=== PATIENT | female | born 1960 | race African-American/Black ===

== ENCOUNTER 2023-11-08 23:36 | Inpatient (IN) | payer OTHER ==
[~2023-11-08] VITALS: Ht 165.1 cm; Wt 80.7 kg
[2023-11-08] MEDS ORDERED: CALCIUM GLUCONATE 100MG/ML 10ML VIAL IV ONE (23:45)
[2023-11-08 23:59] LABS: BASOPHILS % 1.1 % (0.0-2.0); EOSINOPHILS % 6.8 % (0.0-5.0); HEMATOCRIT. 32.4 % (36.0-48.0); HEMOGLOBIN. 10.6 g/dL (12.0-16.0); LYMPHOCYTES % 7.4 % (20.0-50.0); MEAN CORPUSCULAR HEMOGLOBIN 30.7 pg (28.0-32.0); MEAN CORPUSCULAR HGB CONC 32.6 g/dL (31.0-37.0); MEAN CORPUSCULAR VOLUME 94.1 fL (81.0-99.0); MEAN PLATELET VOLUME 8.8 fl (7.4-10.4); MONOCYTES % 10.3 % (2.0-8.0); NEUTROPHILS % 74.4 % (40.0-76.0); PLATELET 189 x1000/uL (130-400); RED BLOOD CELL COUNT 3.44 mill/uL (4.2-5.4); RED CELL DISTRIBUTION WIDTH 14.8 % (11.6-14.6); WHITE BLOOD COUNT 8.4 x1000/uL (4.5-11.0)
[2023-11-09] VITALS (19 sets, daily range): BP systolic 112–175; BP diastolic 49–68; PULSE 42–67; RESP 14–26; TEMP 97.1–98; O2SAT 100
[2023-11-09] MEDS: CALCIUM GLUCONATE 1GM PREMIX 50 ML IV NR ×2 (00:01→01:41)
[2023-11-09 00:12] LABS: CHLORIDE 105 mEq/L (98-107); POTASSIUM 3.8 mEq/L (3.5-5.1); SODIUM 138 mEq/L (136-145)
[2023-11-09 00:13] LABS: CALCIUM 8.4 mg/dL (8.7-10.4); CARBON DIOXIDE 24 mEq/L (21-32)
[2023-11-09 00:18] LABS: GLUCOSE 197 mg/dL (70-105); UREA NITROGEN BLOOD 36 mg/dL (9-23)
[2023-11-09 00:19] LABS: TROPONIN I HIGH SENSITIVITY 17 ng/L (3.0-34)
[2023-11-09 00:27] LABS: CREATININE 5.5 mg/dL (0.6-1.0)
[2023-11-09] MEDS: HYDRALAZINE 20MG/ML VIAL IV NR ×2 (04:18→05:54)
[2023-11-09] MEDS ORDERED: GUAIFENESIN 200MG/10ML SUGAR FREE UDC PO PRN (05:15)
[2023-11-09] MEDS ORDERED: DOCUSATE SODIUM 100MG CAPSULE PO PRN (05:15)
[2023-11-09] MEDS ORDERED: DEXTROSE 50% WATER 50ML SYRINGE IV PRN (05:15)
[2023-11-09] MEDS ORDERED: IPRATROPIUM/ALBUTEROL 0.5-3(2.5)MG/3ML NEB HHN PRN (05:15)
[2023-11-09] MEDS ORDERED: ONDANSETRON HCL 4MG/2ML INJ IV PRN (05:15)
[2023-11-09] MEDS: BLOOD SUGAR DIAGNOSTIC STRIP TEST SCH (08:05)
[2023-11-09] MEDS: INSULIN LISPRO 100 UNITS/ML SUBCUT SCH (08:20)
[2023-11-09] MEDS: ASPIRIN 81MG EC TABLET PO SCH (09:00)
[2023-11-09] MEDS: AMLODIPINE 10MG TABLET PO SCH (09:00)
[2023-11-09] MEDS: ENOXAPARIN 30MG/0.3ML SYR SUBCUT SCH (09:00)
[2023-11-09 09:20] LABS: BASOPHILS % 0.9 % (0.0-2.0); EOSINOPHILS % 7.4 % (0.0-5.0); HEMATOCRIT. 32.7 % (36.0-48.0); HEMOGLOBIN. 10.7 g/dL (12.0-16.0); LYMPHOCYTES % 9.6 % (20.0-50.0); MEAN CORPUSCULAR HEMOGLOBIN 30.3 pg (28.0-32.0); MEAN CORPUSCULAR HGB CONC 32.5 g/dL (31.0-37.0); MEAN CORPUSCULAR VOLUME 93.2 fL (81.0-99.0); MEAN PLATELET VOLUME 8.5 fl (7.4-10.4); MONOCYTES % 14.6 % (2.0-8.0); NEUTROPHILS % 67.5 % (40.0-76.0); PLATELET 182 x1000/uL (130-400); RED BLOOD CELL COUNT 3.51 mill/uL (4.2-5.4); RED CELL DISTRIBUTION WIDTH 15.1 % (11.6-14.6); WHITE BLOOD COUNT 7.3 x1000/uL (4.5-11.0)
[2023-11-09 10:25] LABS: CHLORIDE 102 mEq/L (98-107); POTASSIUM 4.3 mEq/L (3.5-5.1); SODIUM 138 mEq/L (136-145)
[2023-11-09 10:26] LABS: CARBON DIOXIDE 26 mEq/L (21-32)
[2023-11-09 10:31] LABS: GLUCOSE 114 mg/dL (70-105); IRON 40 ug/dL (50-170)
[2023-11-09 10:32] LABS: LDL CHOLESTEROL 33 mg/dL (5-100); T4 FREE 1.11 ng/dL (0.89-1.76); TOTAL IRON BINDING CAPACITY 222 ug/dl (250-425); TRIGLYCERIDE 63 mg/dL (0-150); UREA NITROGEN BLOOD 33 mg/dL (9-23)
[2023-11-09 10:33] LABS: ALANINE AMINOTRANSFERASE < 7 IU/L (10-49); ALBUMIN 3.5 g/dL (3.2-4.8); ASPARTATE AMINOTRANSFERASE 18 IU/L (<34); BILIRUBIN TOTAL < 0.2 mg/dL (0.1-1.0); CHOLESTEROL 74 mg/dL (<200); HDL CHOLESTEROL 26 mg/dL (>65); THYROID STIMULATING HORMONE 1.43 uIU/mL (0.55-4.78)
[2023-11-09 10:34] LABS: PHOSPHORUS 3.1 mg/dL (2.5-4.9)
[2023-11-09 11:20] LABS: CREATININE 6.2 mg/dL (0.6-1.0)
[2023-11-09 11:34] LABS: CALCIUM 9.5 mg/dL (8.7-10.4)
[2023-11-09 11:47] LABS: FERRITIN 870 ng/mL (10-291); FOLIC ACID (FOLATE) SERUM 6.15 ng/mL (>5.38)
[2023-11-09 12:59] LABS: VITAMIN B12 SERUM 303 pg/mL (211-911)
[2023-11-09] MEDS: IPRATROPIUM/ALBUTEROL 0.5-3(2.5)MG/3ML NEB HHN SCH (21:10)
[2023-11-09] MEDS: ATORVASTATIN CALCIUM 40MG TABLET PO SCH (22:31)
[2023-11-09] MEDS: MELATONIN 3MG TABLET PO SCH (22:32)
[2023-11-09] MEDS: FAMOTIDINE 20MG TABLET PO SCH (22:32)
[2023-11-10] VITALS (16 sets, daily range): BP systolic 116–178; BP diastolic 44–80; PULSE 46–71; RESP 16–29; TEMP 96.2–98; O2SAT 100
[2023-11-10] MEDS: HYDRALAZINE 20MG/ML VIAL IV PRN (05:20)
[2023-11-10 06:25] LABS: HEMATOCRIT. 29.9 % (36.0-48.0); HEMOGLOBIN. 9.8 g/dL (12.0-16.0); MEAN CORPUSCULAR HEMOGLOBIN 30.3 pg (28.0-32.0); MEAN CORPUSCULAR HGB CONC 32.9 g/dL (31.0-37.0); MEAN CORPUSCULAR VOLUME 92.1 fL (81.0-99.0); MEAN PLATELET VOLUME 8.7 fl (7.4-10.4); PLATELET 185 x1000/uL (130-400); RED BLOOD CELL COUNT 3.25 mill/uL (4.2-5.4); RED CELL DISTRIBUTION WIDTH 14.7 % (11.6-14.6); WHITE BLOOD COUNT 7.5 x1000/uL (4.5-11.0)
[2023-11-10 06:33] LABS: CHLORIDE 103 mEq/L (98-107); POTASSIUM 4.1 mEq/L (3.5-5.1); SODIUM 139 mEq/L (136-145)
[2023-11-10 06:34] LABS: DIFFERENTIAL COMMENT 1
[2023-11-10 06:35] LABS: CALCIUM 9.2 mg/dL (8.7-10.4); CARBON DIOXIDE 26 mEq/L (21-32)
[2023-11-10 06:40] LABS: GLUCOSE 108 mg/dL (70-105); UREA NITROGEN BLOOD 34 mg/dL (9-23)
[2023-11-10 06:42] LABS: ALANINE AMINOTRANSFERASE < 7 IU/L (10-49); ALBUMIN 3.6 g/dL (3.2-4.8); ASPARTATE AMINOTRANSFERASE 14 IU/L (<34); BILIRUBIN TOTAL < 0.2 mg/dL (0.1-1.0); PHOSPHORUS 3.5 mg/dL (2.5-4.9); PROTEIN TOTAL 6.2 g/dL (6.0-8.3)
[2023-11-10 06:52] LABS: CREATININE 5.7 mg/dL (0.6-1.0)
[2023-11-10] MEDS: AMLODIPINE 5MG TABLET PO SCH (08:24)
[2023-11-10] MEDS: FOLIC ACID/VITAMIN B COMP W-C TABLET PO SCH (08:25)
[2023-11-10] MEDS: NITROGLYCERIN OINT 1GM/INCH UDPKT TD STA (11:29)
[2023-11-10 11:33] LABS: PLATELET ESTIMATE NORMAL
[2023-11-10] MEDS: ACETAMINOPHEN 325MG TABLET PO PRN (20:27)
[2023-11-10] MEDS: HEPARIN 5000 UNITS/ML VIAL SUBCUT SCH (21:00)
[2023-11-10] MEDS: EPOETIN ALFA 4000UNITS/ML VIAL SUBCUT SCH (21:37)
[2023-11-11] VITALS (12 sets, daily range): BP systolic 133–178; BP diastolic 48–125; PULSE 44–90; RESP 12–26; TEMP 96.4–98.7; O2SAT 99–100
[2023-11-11 06:42] LABS: BASOPHILS % 1.1 % (0.0-2.0); EOSINOPHILS % 7.1 % (0.0-5.0); HEMATOCRIT. 32.6 % (36.0-48.0); HEMOGLOBIN. 10.7 g/dL (12.0-16.0); MEAN CORPUSCULAR HEMOGLOBIN 30.5 pg (28.0-32.0); MEAN CORPUSCULAR VOLUME 92.4 fL (81.0-99.0); MONOCYTES % 13.5 % (2.0-8.0); NEUTROPHILS % 67.3 % (40.0-76.0); PLATELET 188 x1000/uL (130-400); RED BLOOD CELL COUNT 3.53 mill/uL (4.2-5.4); RED CELL DISTRIBUTION WIDTH 14.6 % (11.6-14.6); WHITE BLOOD COUNT 6.3 x1000/uL (4.5-11.0)
[2023-11-11 06:52] LABS: POTASSIUM 4.2 mEq/L (3.5-5.1)
[2023-11-11 06:53] LABS: CALCIUM 9.5 mg/dL (8.7-10.4)
[2023-11-11 07:00] LABS: PHOSPHORUS 4.4 mg/dL (2.5-4.9)
[2023-11-11 07:03] LABS: CREATININE 7.3 mg/dL (0.6-1.0)
[2023-11-11] MEDS: NITROGLYCERIN OINT 1GM/INCH UDPKT TD SCH (10:23)
[2023-11-11] MEDS ORDERED: GENTAMICIN SULF 40MG/ML 2ML VIAL ONE (13:25)
[2023-11-11] MEDS ORDERED: CEFAZOLIN SODIUM 1000MG/VIAL ONE (13:25)
[2023-11-11] MEDS ORDERED: GENTAMICIN/NS IRRIGATION 500 ML IR NR (13:45)
[2023-11-11] MEDS ORDERED: FENTANYL CITRATE/PF 50MCG/ML 2ML VIAL ONE (14:10)
[2023-11-11] MEDS ORDERED: MIDAZOLAM HCL 2 MG/2 ML VIAL ONE (14:11)
[2023-11-11] MEDS ORDERED: LIDOCAINE HCL 1% 20ML VIAL (Pyxis) INJ ONE (14:43)
[2023-11-11] MEDS ORDERED: IODIXANOL 320MG/ML 100 ML BOTTLE IV ONE (14:44)
[2023-11-11] MEDS ORDERED: HYDRALAZINE 20MG/ML VIAL ONE (15:32)
[2023-11-11] MEDS: VANCOMYCIN 1000MG/250ML IV NR (21:35)
[2023-11-11] MEDS: METOPROLOL TARTRATE 25MG TABLET PO SCH (21:37)
[2023-11-11] MEDS: AMLODIPINE 5MG TABLET PO SCH (21:37)
[2023-11-11] MEDS: QUETIAPINE FUMARATE 25MG TABLET PO PRN (22:23)
[2023-11-11] MEDS ORDERED: LORAZEPAM 1MG TABLET PO NR (23:30)
[2023-11-11] MEDS: LORAZEPAM 2MG/ML INJ IV NR (23:34)
[2023-11-11] MEDS: MAGNESIUM/ALUMINUM HYDROXIDE/SIMETHICONE 30ML UDC PO PRN (23:35)
[2023-11-12] VITALS (17 sets, daily range): BP systolic 142–208; BP diastolic 57–173; PULSE 64–94; RESP 20–33; TEMP 97.8–98.9; O2SAT 96–99
[2023-11-12 16:21] LABS: HEMATOCRIT. 34.8 % (36.0-48.0); HEMOGLOBIN. 11.3 g/dL (12.0-16.0); MEAN CORPUSCULAR HEMOGLOBIN 30.1 pg (28.0-32.0); MEAN CORPUSCULAR HGB CONC 32.5 g/dL (31.0-37.0); MEAN CORPUSCULAR VOLUME 92.7 fL (81.0-99.0); MEAN PLATELET VOLUME 8.8 fl (7.4-10.4); PLATELET 259 x1000/uL (130-400); RED BLOOD CELL COUNT 3.76 mill/uL (4.2-5.4); RED CELL DISTRIBUTION WIDTH 14.8 % (11.6-14.6); WHITE BLOOD COUNT 11.5 x1000/uL (4.5-11.0)
[2023-11-12 16:23] LABS: DIFFERENTIAL COMMENT 1
[2023-11-12 16:25] LABS: CALCIUM 9.6 mg/dL (8.7-10.4)
[2023-11-12 16:41] LABS: CREATININE 5.9 mg/dL (0.6-1.0)
[2023-11-12 21:47] LABS: ANISOCYTOSIS 1+; PLATELET ESTIMATE NORMAL
[2023-11-13] VITALS: BP 155/65; PULSE 68; RESP 18; TEMP 98
[2023-11-13 00:15] VITALS: BP 150/65; PULSE 78; TEMP 97.8; O2SAT 98
== END 2023-11-13 02:40 | disposition short-term general hospital (02) | DRG 242 ==
LOC: ER 23:36 → 5EST 11-09 03:10 → EDBEDREQ 11-09 03:12 → EDBEDREQTM 11-09 03:12 → 3WST 11-11 17:09
PROVIDERS: ADMIT Hospitalist; ATTEND Hospitalist
PROC: 5A1D70Z Performance of Urinary Filtration, Intermittent, Less than 6 Hours Per Day (ICD-10-PCS; 2023-11-09)
PROC: 0JH606Z Insertion of Pacemaker, Dual Chamber into Chest Subcutaneous Tissue and Fascia, Open Approach (ICD-10-PCS; principal; 2023-11-11)
PROC: 02H63JZ Insertion of Pacemaker Lead into Right Atrium, Percutaneous Approach (ICD-10-PCS; 2023-11-11)
PROC: 02HK3JZ Insertion of Pacemaker Lead into Right Ventricle, Percutaneous Approach (ICD-10-PCS; 2023-11-11)
PROC: 5A1D70Z Performance of Urinary Filtration, Intermittent, Less than 6 Hours Per Day (ICD-10-PCS; 2023-11-12)
DX: I44.2 Atrioventricular block, complete (principal); N18.6 End stage renal disease; I13.2 Hypertensive heart and chronic kidney disease with heart failure and with stage 5 chronic kidney disease, or end stage renal disease; N25.81 Secondary hyperparathyroidism of renal origin; I38 Endocarditis, valve unspecified; G45.9 Transient cerebral ischemic attack, unspecified; J45.909 Unspecified asthma, uncomplicated; E11.22 Type 2 diabetes mellitus with diabetic chronic kidney disease; I50.9 Heart failure, unspecified; E11.51 Type 2 diabetes mellitus with diabetic peripheral angiopathy without gangrene; K21.9 Gastro-esophageal reflux disease without esophagitis; E78.5 Hyperlipidemia, unspecified; Z99.2 Dependence on renal dialysis; Z99.81 Dependence on supplemental oxygen; Z86.73 Personal history of transient ischemic attack (TIA), and cerebral infarction without residual deficits; Z88.0 Allergy status to penicillin; Z95.0 Presence of cardiac pacemaker; Z79.899 Other long term (current) drug therapy; Z82.49 Family history of ischemic heart disease and other diseases of the circulatory system
CPT/HCPCS: 33208; 36415; 71045; 75820; 80048; 80053; 80061; 82607; 82728; 82746; 82962; 83036; 83540; 83550; 83735; 84100; 84439; 84443; 84484; 85025; 90935; 93005; 93306; 93880; 94640; 99291; C1785; C1893; C1898; J0360; J0610; J0690; J0885; J1580; J1644; J1650; J1815; J2060; J2250; J3010; J3370; J3490; Q9967

== ENCOUNTER 2023-12-16 17:24 | Inpatient (IN) | payer OTHER ==
[~2023-12-16] VITALS: Ht 165.1 cm; Wt 67.1 kg
[2023-12-16] MEDS: MORPHINE SULFATE 4 MG/ML INJ (FOR IV/IM USE) IV STA (18:44)
[2023-12-16] MEDS: ONDANSETRON HCL 4MG/2ML INJ IV STA (18:44)
[2023-12-16 18:56] LABS: HEMATOCRIT. 34.7 % (36.0-48.0); HEMOGLOBIN. 11.4 g/dL (12.0-16.0); MEAN CORPUSCULAR HEMOGLOBIN 30.6 pg (28.0-32.0); MEAN CORPUSCULAR HGB CONC 32.8 g/dL (31.0-37.0); MEAN CORPUSCULAR VOLUME 93.2 fL (81.0-99.0); MEAN PLATELET VOLUME 8.9 fl (7.4-10.4); PLATELET 133 x1000/uL (130-400); RED BLOOD CELL COUNT 3.73 mill/uL (4.2-5.4); RED CELL DISTRIBUTION WIDTH 14.4 % (11.6-14.6); WHITE BLOOD COUNT 10.4 x1000/uL (4.5-11.0)
[2023-12-16 19:01] LABS: DIFFERENTIAL COMMENT 1
[2023-12-16 19:04] LABS: CHLORIDE 96 mEq/L (98-107); POTASSIUM 3.4 mEq/L (3.5-5.1); SODIUM 135 mEq/L (136-145)
[2023-12-16 19:05] LABS: CALCIUM 9.3 mg/dL (8.7-10.4); CARBON DIOXIDE 29 mEq/L (21-32)
[2023-12-16 19:10] LABS: GLUCOSE 204 mg/dL (70-105); TROPONIN I HIGH SENSITIVITY 17 ng/L (3.0-34); UREA NITROGEN BLOOD 17 mg/dL (9-23)
[2023-12-16 19:12] LABS: ALANINE AMINOTRANSFERASE 11 IU/L (10-49); ALBUMIN 4.3 g/dL (3.2-4.8); ASPARTATE AMINOTRANSFERASE 25 IU/L (<34); BILIRUBIN DIRECT 0.2 mg/dL (<=3.0); BILIRUBIN TOTAL 0.2 mg/dL (0.1-1.0); PROTEIN TOTAL 6.9 g/dL (6.0-8.3)
[2023-12-16 19:15] LABS: INR 1.1
[2023-12-16 19:23] LABS: CREATININE 3.4 mg/dL (0.6-1.0)
[2023-12-16] MEDS: ACETAMINOPHEN 1000MG/100ML 100 ML IV ONE (19:41)
[2023-12-16 21:46] LABS: ETHANOL BLOOD < 10 mg/dL (<10)
[2023-12-16] MEDS ORDERED: AZITHROMYCIN 500MG/250ML 250 ML IV NR ×2 (22:00→22:15)
[2023-12-16] MEDS: DOXYCYCLINE 100MG/100ML 100 ML IV NR (22:15)
[2023-12-16 22:18] LABS: PLATELET ESTIMATE NORMAL
[2023-12-16 22:19] LABS: GIANT PLATELETS FEW; OVALOCYTES 2+
[2023-12-16 22:39] LABS: BG BASE EXCESS 6.6 mmol/L (-2.0-2.0); BG CARBOXYHEMOGLOBIN 0.8 % (0.5-1.5); BG DEOXYHEMOGLOBIN 3.2 % (0.0-5.0); BG FRACTION INSPIRED OXYGEN 36; BG HCO3 ACT 32.4 mmol/L (22.0-26.0); BG METHEMOGLOBIN 0.2 % (0.0-1.5); BG OXYGEN SATURATION 96.8 % (92.0-98.5); BG OXYHEMOGLOBIN 95.8 % (94.0-97.0); BG PCO2 51.5 mmHg (35.0-45.0); BG PH 7.416 (7.350-7.450); BG PO2 93.8 mmHg (75.0-100.0); BG SAMPLE SITE RIGHT RADIAL; BG TOTAL HEMOGLOBIN 12.6 g/dL (12.0-18.0); BG VENT MODE NASAL CANNULA
[2023-12-16] MEDS: CEFTRIAXONE 1GM/50ML 50 ML IV NR (23:00)
[2023-12-17] MEDS ORDERED: HYDROCODONE/ACETAMINOPHEN 10/325MG TABLET PO PRN (06:30)
[2023-12-17 08:00] VITALS: BP 142/61; PULSE 74; RESP 18; TEMP 97.9
[2023-12-17] MEDS ORDERED: HYDRALAZINE HCL 25MG TABLET PO PRN (08:00)
[2023-12-17 09:00] VITALS: BP 176/66; PULSE 62; RESP 18; TEMP 98.3
[2023-12-17] MEDS ORDERED: ASPIRIN 81MG EC TABLET PO SCH (09:00)
[2023-12-17] MEDS ORDERED: ONDANSETRON HCL 4MG/2ML INJ IV PRN (09:45)
[2023-12-17 12:00] VITALS: BP 152/68; PULSE 68; RESP 18; TEMP 98.2
[2023-12-17] MEDS ORDERED: DEXTROSE 50% WATER 50ML SYRINGE IV PRN (12:15)
[2023-12-17] MEDS: LABETALOL HCL 200MG TABLET PO SCH (15:43)
[2023-12-17] MEDS: AMLODIPINE 10MG TABLET PO SCH (15:44)
[2023-12-17] MEDS: ASPIRIN 81MG TABLET PO SCH (15:44)
[2023-12-17] MEDS: SEVELAMER CARBONATE 800 MG TABLET PO SCH (15:44)
[2023-12-17] MEDS: CLOPIDOGREL 75MG TABLET PO SCH (15:44)
[2023-12-17] MEDS: ENOXAPARIN 30MG/0.3ML SYR SUBCUT SCH (15:45)
[2023-12-17 16:00] VITALS: BP 152/60; PULSE 78; RESP 18; TEMP 97.5
[2023-12-17] MEDS: BLOOD SUGAR DIAGNOSTIC STRIP TEST SCH (16:40)
[2023-12-17] MEDS: INSULIN LISPRO 100 UNITS/ML SUBCUT SCH (17:10)
[2023-12-17 20:00] VITALS: BP 130/49; PULSE 71; RESP 19; TEMP 97.5
[2023-12-17] MEDS: ATORVASTATIN CALCIUM 40MG TABLET PO SCH (20:43)
[2023-12-17] MEDS ORDERED: ATORVASTATIN CALCIUM 40MG TABLET PO SCH (21:00)
[2023-12-18] VITALS: BP 154/69; PULSE 40; RESP 19; TEMP 97.5
[2023-12-18 04:00] VITALS: BP 136/54; PULSE 76; RESP 19; TEMP 97.9
[2023-12-18] MEDS: ACETAMINOPHEN 325MG TABLET PO PRN (04:48)
[2023-12-18 07:11] LABS: HEMATOCRIT. 30.7 % (36.0-48.0); MEAN CORPUSCULAR HGB CONC 32.4 g/dL (31.0-37.0); MEAN CORPUSCULAR VOLUME 92.5 fL (81.0-99.0); MEAN PLATELET VOLUME 9.3 fl (7.4-10.4); PLATELET 137 x1000/uL (130-400); RED BLOOD CELL COUNT 3.32 mill/uL (4.2-5.4); RED CELL DISTRIBUTION WIDTH 14.4 % (11.6-14.6); WHITE BLOOD COUNT 5.5 x1000/uL (4.5-11.0)
[2023-12-18 07:13] LABS: POTASSIUM 3.9 mEq/L (3.5-5.1)
[2023-12-18 07:14] LABS: CALCIUM 9.3 mg/dL (8.7-10.4)
[2023-12-18 07:27] LABS: DIFFERENTIAL COMMENT 1
[2023-12-18 08:00] VITALS: BP 137/61; PULSE 72; RESP 19; TEMP 97.2
[2023-12-18 08:29] LABS: CREATININE 5.8 mg/dL (0.6-1.0)
[2023-12-18 08:37] LABS: HEPATITIS A AB IGM NEGATIVE (Negative)
[2023-12-18 08:38] LABS: HEPATITIS B CORE AB IGM NEGATIVE (Negative); HEPATITIS C AB NON REACTIVE (Neg) (Negative)
[2023-12-18 08:44] LABS: HEPATITIS B SURFACE ANTIGEN NEGATIVE (Negative)
[2023-12-18] MEDS: FOLIC ACID/VITAMIN B COMP W-C TABLET PO SCH (09:38)
[2023-12-18 10:12] LABS: PLATELET ESTIMATE NORMAL
[2023-12-18 12:00] VITALS: BP 138/58; PULSE 70; RESP 18; TEMP 97.7
[2023-12-18 12:10] VITALS: BP 138/58; PULSE 70; TEMP 97.7; O2SAT 93
[2023-12-18] MEDS ORDERED: LEVO-65 MT (14:54)
[2023-12-18] MEDS ORDERED: LEVO250T74 MT (14:55)
== END 2023-12-18 14:54 | disposition home or self-care (01) | DRG 304 ==
LOC: ER 17:24 → 5WST 21:28 → EDBEDREQTM 22:52 → EDBEDREQ 22:52 → 7EST 12-17 08:40
PROVIDERS: ADMIT Internal Medicine; ATTEND Internal Medicine
DX: I16.0 Hypertensive urgency (principal); N18.6 End stage renal disease; E87.1 Hypo-osmolality and hyponatremia; I13.2 Hypertensive heart and chronic kidney disease with heart failure and with stage 5 chronic kidney disease, or end stage renal disease; D64.9 Anemia, unspecified; I50.9 Heart failure, unspecified; E87.6 Hypokalemia; J45.909 Unspecified asthma, uncomplicated; E11.22 Type 2 diabetes mellitus with diabetic chronic kidney disease; Z86.73 Personal history of transient ischemic attack (TIA), and cerebral infarction without residual deficits; Z99.2 Dependence on renal dialysis; Z90.49 Acquired absence of other specified parts of digestive tract; Z95.0 Presence of cardiac pacemaker; Z88.0 Allergy status to penicillin; Z88.8 Allergy status to other drugs, medicaments and biological substances
CPT/HCPCS: 36415; 36600; 70496; 70498; 71045; 74176; 76705; 80048; 80061; 80076; 80320; 82375; 82805; 82962; 83036; 84145; 84484; 85025; 86705; 86709; 87340; 92610; 93005; 93306; 97162; 97166; 99291; J0696; J1650; J1815; J2270; J2405; J3490; G0480; J0131

== ENCOUNTER 2024-01-06 00:42 | Inpatient (IN) | payer OTHER ==
[~2024-01-06] VITALS: Ht 165.1 cm; Wt 78.1 kg
[~2024-01-06 00:42] MED LIST: LEVO250T74 MT
[2024-01-06 02:25] LABS: BASOPHILS % 1.9 % (0.0-2.0); HEMATOCRIT. 34.3 % (36.0-48.0); HEMOGLOBIN. 11.2 g/dL (12.0-16.0); LYMPHOCYTES % 8.8 % (20.0-50.0); MEAN CORPUSCULAR HEMOGLOBIN 30.4 pg (28.0-32.0); MEAN CORPUSCULAR HGB CONC 32.8 g/dL (31.0-37.0); MEAN CORPUSCULAR VOLUME 92.7 fL (81.0-99.0); MEAN PLATELET VOLUME 8.8 fl (7.4-10.4); MONOCYTES % 14.3 % (2.0-8.0); PLATELET 188 x1000/uL (130-400); RED BLOOD CELL COUNT 3.69 mill/uL (4.2-5.4); RED CELL DISTRIBUTION WIDTH 15.4 % (11.6-14.6); WHITE BLOOD COUNT 6.2 x1000/uL (4.5-11.0)
[2024-01-06 02:33] LABS: CARBON DIOXIDE 27 mEq/L (21-32); CHLORIDE 102 mEq/L (98-107); POTASSIUM 4.1 mEq/L (3.5-5.1); SODIUM 138 mEq/L (136-145)
[2024-01-06 02:34] LABS: CALCIUM 9.4 mg/dL (8.7-10.4)
[2024-01-06 02:35] LABS: INR 1.1; PARTIAL THROMBOPLASTIN TIME 29.9 sec (23.4-31.0); PROTHROMBIN TIME 11.9 sec (9.6-11.0)
[2024-01-06 02:39] LABS: GLUCOSE 145 mg/dL (70-105); UREA NITROGEN BLOOD 33 mg/dL (9-23)
[2024-01-06 02:40] LABS: ALANINE AMINOTRANSFERASE 17 IU/L (10-49)
[2024-01-06 02:41] LABS: ALBUMIN 4.3 g/dL (3.2-4.8); ASPARTATE AMINOTRANSFERASE 27 IU/L (<34); BILIRUBIN TOTAL < 0.2 mg/dL (0.1-1.0); PROTEIN TOTAL 7.3 g/dL (6.0-8.3); TROPONIN I HIGH SENSITIVITY 21 ng/L (3.0-34)
[2024-01-06] MEDS: CALCIUM GLUCONATE 100MG/ML 10ML VIAL IV ONE (02:50)
[2024-01-06 03:01] LABS: BILIRUBIN DIRECT < 0.1 mg/dL (<=3.0); ETHANOL BLOOD < 10 mg/dL (<10)
[2024-01-06 03:05] LABS: CREATININE 5.1 mg/dL (0.6-1.0)
[2024-01-06] MEDS: AMLODIPINE 10MG TABLET PO SCH (10:55)
[2024-01-06] MEDS ORDERED: ONDANSETRON HCL 4MG/2ML INJ IV PRN (11:30)
[2024-01-06 14:08] VITALS: BP 110/46; PULSE 64; RESP 18; TEMP 98
[2024-01-06] MEDS: PANTOPRAZOLE 40MG DR TABLET PO SCH (15:39)
[2024-01-06 16:17] VITALS: BP 110/46; PULSE 64; RESP 18; TEMP 97.6
[2024-01-06 16:37] LABS: HEPATITIS B SURFACE ANTIGEN NEGATIVE (Negative)
[2024-01-06 16:58] LABS: HEPATITIS A AB IGM NEGATIVE (Negative)
[2024-01-06 16:59] LABS: HEPATITIS B CORE AB IGM NEGATIVE (Negative); HEPATITIS C AB NON REACTIVE (Neg) (Negative)
[2024-01-06 22:00] VITALS: BP 155/61; PULSE 54; RESP 19
[2024-01-07] VITALS (15 sets, daily range): BP systolic 153–185; BP diastolic 59–105; PULSE 58–95; RESP 18–25; TEMP 96.8–98.7; O2SAT 95
[2024-01-07] MEDS: LORAZEPAM 2MG/ML INJ IV PRN (02:04)
[2024-01-07] MEDS: MAGNESIUM/ALUMINUM HYDROXIDE/SIMETHICONE 30ML UDC PO PRN (05:19)
[2024-01-07] MEDS: ACETAMINOPHEN 325MG TABLET PO PRN (05:35)
[2024-01-07] MEDS: DOCUSATE SODIUM 250MG CAPSULE PO SCH (09:57)
[2024-01-07 10:16] LABS: HEMATOCRIT. 32.7 % (36.0-48.0); HEMOGLOBIN. 10.5 g/dL (12.0-16.0); MEAN CORPUSCULAR HEMOGLOBIN 29.7 pg (28.0-32.0); MEAN CORPUSCULAR HGB CONC 31.9 g/dL (31.0-37.0); MEAN PLATELET VOLUME 8.6 fl (7.4-10.4); PLATELET 208 x1000/uL (130-400); RED BLOOD CELL COUNT 3.52 mill/uL (4.2-5.4); WHITE BLOOD COUNT 5.9 x1000/uL (4.5-11.0)
[2024-01-07 10:18] LABS: DIFFERENTIAL COMMENT 1
[2024-01-07 11:25] LABS: CALCIUM 9.3 mg/dL (8.7-10.4); POTASSIUM 3.6 mEq/L (3.5-5.1)
[2024-01-07 11:30] LABS: CREATININE 4.3 mg/dL (0.6-1.0)
[2024-01-07] MEDS: HYDRALAZINE HCL 50MG TABLET PO NR (12:37)
[2024-01-07 14:51] LABS: PLATELET ESTIMATE NORMAL
[2024-01-07] MEDS: DOCUSATE SODIUM 250MG CAPSULE PO PRN (18:10)
[2024-01-07] MEDS: NA PHOS,M-B/NA PHOS,DI-BA ENEMA 118ML PR NR (20:38)
[2024-01-07] MEDS: HYDRALAZINE HCL 50MG TABLET PO SCH (20:38)
[2024-01-08] VITALS: BP 182/90; PULSE 88; RESP 30; TEMP 98.5
== END 2024-01-08 00:15 | disposition short-term general hospital (02) | DRG 308 ==
LOC: ER 00:54 → 5WST 03:47 → EDBEDREQTM 04:01 → EDBEDREQ 04:01 → 5WST 06:34 → 7WST 13:04 → 5EST 20:40
PROVIDERS: ADMIT Internal Medicine; ATTEND Internal Medicine
PROC: 5A1D70Z Performance of Urinary Filtration, Intermittent, Less than 6 Hours Per Day (ICD-10-PCS; principal; 2024-01-07)
DX: R00.1 Bradycardia, unspecified (principal); N18.6 End stage renal disease; I13.2 Hypertensive heart and chronic kidney disease with heart failure and with stage 5 chronic kidney disease, or end stage renal disease; I50.32 Chronic diastolic (congestive) heart failure; E11.22 Type 2 diabetes mellitus with diabetic chronic kidney disease; J44.89 Other specified chronic obstructive pulmonary disease; D64.9 Anemia, unspecified; Z95.0 Presence of cardiac pacemaker; Z99.2 Dependence on renal dialysis; Z88.0 Allergy status to penicillin
CPT/HCPCS: 36415; 71045; 80048; 80076; 80320; 83880; 84484; 85025; 86705; 86709; 87340; 90935; 93005; 99285; J0610; J2060; G0480

== ENCOUNTER 2024-10-04 08:11 | Inpatient (IN) | payer OTHER ==
[~2024-10-04] VITALS: Ht 165.1 cm; Wt 74.4 kg
[2024-10-04] MEDS: SODIUM CHLORIDE 0.9% 1,000 ML IV ONE (08:45)
[2024-10-04 09:13] LABS: HEMATOCRIT. 37.1 % (36.0-48.0); HEMOGLOBIN. 11.9 g/dL (12.0-16.0); MEAN CORPUSCULAR HEMOGLOBIN 30.5 pg (28.0-32.0); MEAN CORPUSCULAR HGB CONC 32.1 g/dL (31.0-37.0); MEAN CORPUSCULAR VOLUME 94.9 fL (81.0-99.0); MEAN PLATELET VOLUME 7.9 fl (7.4-10.4); PLATELET 200 x1000/uL (130-400); RED BLOOD CELL COUNT 3.91 mill/uL (4.2-5.4); RED CELL DISTRIBUTION WIDTH 14.1 % (11.6-14.6); WHITE BLOOD COUNT 8.5 x1000/uL (4.5-11.0)
[2024-10-04 09:16] LABS: DIFFERENTIAL COMMENT 1
[2024-10-04 09:18] LABS: CHLORIDE 101 mEq/L (98-107); POTASSIUM 3.8 mEq/L (3.5-5.1); SODIUM 141 mEq/L (136-145)
[2024-10-04 09:20] LABS: CALCIUM 10.4 mg/dL (8.7-10.4); CARBON DIOXIDE 29 mEq/L (21-32)
[2024-10-04 09:24] LABS: CREATININE 4.2 mg/dL (0.6-1.0); GLUCOSE 127 mg/dL (70-105)
[2024-10-04 09:25] LABS: UREA NITROGEN BLOOD 28 mg/dL (9-23)
[2024-10-04 09:36] LABS: TROPONIN I HIGH SENSITIVITY 39 ng/L (3.0-34)
[2024-10-04 11:18] LABS: PLATELET ESTIMATE NORMAL
[2024-10-04] MEDS ORDERED: DEXTROSE 50% WATER 50ML SYRINGE IV PRN (13:30)
[2024-10-04 13:45] VITALS: BP 148/74; PULSE 82; RESP 16; TEMP 37.1; O2SAT 92
[2024-10-04] MEDS ORDERED: ASPI-864 MT (14:26)
[2024-10-04] MEDS ORDERED: AMLO10TA4 MT (14:26)
[2024-10-04] MEDS ORDERED: CINA30 MT (14:26)
[2024-10-04] MEDS ORDERED: ALBU90AE INH (14:26)
[2024-10-04] MEDS ORDERED: HYOS0.122 MT (14:26)
[2024-10-04] MEDS ORDERED: FURO80TA87 MT (14:26)
[2024-10-04] MEDS ORDERED: TOPUD MT (14:26)
[2024-10-04] MEDS ORDERED: ATOR-388 MT (14:26)
[2024-10-04] MEDS ORDERED: SEVE800T25 PO (14:26)
[2024-10-04] MEDS ORDERED: FLUT1DIS3 INH (14:26)
[2024-10-04] MEDS ORDERED: LACT-394 MT (14:26)
[2024-10-04] MEDS ORDERED: FLUT9.9S BOTHNSTRLS (14:26)
[2024-10-04] MEDS ORDERED: SUCR1TAB30 MT (14:26)
[2024-10-04] MEDS ORDERED: METO-293 MT (14:26)
[2024-10-04] MEDS ORDERED: LOSA-413 MT (14:26)
[2024-10-04] MEDS ORDERED: SIME80TA15 MT (14:26)
[2024-10-04] MEDS ORDERED: ONDA-239 PO (14:26)
[2024-10-04] MEDS ORDERED: HYDR100T31 MT (14:26)
[2024-10-04] MEDS ORDERED: PANT40TA51 MT (14:26)
[2024-10-04] MEDS ORDERED: CLONIDINE 0.1MG TABLET PO PRN (14:30)
[2024-10-04] MEDS ORDERED: ONDANSETRON HCL 4MG/2ML INJ IV PRN (14:30)
[2024-10-04] MEDS ORDERED: ACETAMINOPHEN 325MG TABLET PO PRN (14:30)
[2024-10-04 16:00] VITALS: BP 138/71; PULSE 76; RESP 16; TEMP 37; O2SAT 96
[2024-10-04 18:23] VITALS: BP 148/74; PULSE 82; RESP 16; TEMP 37.1
[2024-10-04] MEDS: INSULIN LISPRO 100 UNITS/ML SUBCUT SCH (19:10)
[2024-10-04] MEDS: BLOOD SUGAR DIAGNOSTIC STRIP TEST SCH (19:10)
[2024-10-04 20:00] VITALS: BP 129/64; PULSE 86; RESP 17; TEMP 37.9; O2SAT 97
[2024-10-05] VITALS (10 sets, daily range): BP systolic 143–169; BP diastolic 70–113; PULSE 68–91; RESP 18–28; TEMP 36.114–37.1; O2SAT 95–97
[2024-10-05 03:46] LABS: TROPONIN I HIGH SENSITIVITY 34 ng/L (3.0-34)
[2024-10-05] MEDS: PANTOPRAZOLE SODIUM 40 MG/VIAL IV SCH (09:11)
[2024-10-05] MEDS: FOLIC ACID/VITAMIN B COMP W-C TABLET PO SCH (09:11)
[2024-10-05 09:19] LABS: BASOPHILS % 0.9 % (0.0-2.0); EOSINOPHILS % 6.8 % (0.0-5.0); HEMATOCRIT. 34.5 % (36.0-48.0); LYMPHOCYTES % 9.2 % (20.0-50.0); MEAN CORPUSCULAR HEMOGLOBIN 30.2 pg (28.0-32.0); MEAN CORPUSCULAR HGB CONC 31.9 g/dL (31.0-37.0); MEAN CORPUSCULAR VOLUME 94.6 fL (81.0-99.0); MEAN PLATELET VOLUME 8.4 fl (7.4-10.4); MONOCYTES % 11.8 % (2.0-8.0); NEUTROPHILS % 71.3 % (40.0-76.0); PLATELET 195 x1000/uL (130-400); RED BLOOD CELL COUNT 3.65 mill/uL (4.2-5.4); RED CELL DISTRIBUTION WIDTH 14.2 % (11.6-14.6); WHITE BLOOD COUNT 5.9 x1000/uL (4.5-11.0)
[2024-10-05 09:32] LABS: POTASSIUM 5.3 mEq/L (3.5-5.1)
[2024-10-05 09:33] LABS: CALCIUM 9.7 mg/dL (8.7-10.4)
[2024-10-05 09:37] LABS: TROPONIN I HIGH SENSITIVITY 34 ng/L (3.0-34)
[2024-10-05 09:40] LABS: PHOSPHORUS 5.4 mg/dL (2.5-4.9)
[2024-10-05 09:57] LABS: CREATININE 5.8 mg/dL (0.6-1.0)
[2024-10-06] VITALS (8 sets, daily range): BP systolic 127–175; BP diastolic 65–85; PULSE 76–85; RESP 16–20; TEMP 36.3–36.8; O2SAT 98–100
[2024-10-06 10:06] LABS: BASOPHILS % 1.1 % (0.0-2.0); EOSINOPHILS % 7.3 % (0.0-5.0); HEMATOCRIT. 31.1 % (36.0-48.0); HEMOGLOBIN. 10.1 g/dL (12.0-16.0); LYMPHOCYTES % 8.1 % (20.0-50.0); MEAN CORPUSCULAR HEMOGLOBIN 30.5 pg (28.0-32.0); MEAN CORPUSCULAR HGB CONC 32.3 g/dL (31.0-37.0); MEAN CORPUSCULAR VOLUME 94.2 fL (81.0-99.0); MEAN PLATELET VOLUME 8.2 fl (7.4-10.4); MONOCYTES % 8.8 % (2.0-8.0); NEUTROPHILS % 74.7 % (40.0-76.0); PLATELET 185 x1000/uL (130-400); RED CELL DISTRIBUTION WIDTH 13.8 % (11.6-14.6); WHITE BLOOD COUNT 5.9 x1000/uL (4.5-11.0)
[2024-10-06 10:18] LABS: POTASSIUM 4.5 mEq/L (3.5-5.1)
[2024-10-06 10:20] LABS: CALCIUM 9.7 mg/dL (8.7-10.4)
== END 2024-10-06 11:10 | disposition home or self-care (01) | DRG 149 ==
LOC: ER 08:11 → 5WST 12:15 → EDBEDREQTM 12:18 → EDBEDREQ 12:18
PROVIDERS: ADMIT Internal Medicine; ATTEND Internal Medicine
PROC: 5A1D70Z Performance of Urinary Filtration, Intermittent, Less than 6 Hours Per Day (ICD-10-PCS; principal; 2024-10-05)
DX: R42 Dizziness and giddiness (principal); J96.91 Respiratory failure, unspecified with hypoxia; N18.6 End stage renal disease; I13.2 Hypertensive heart and chronic kidney disease with heart failure and with stage 5 chronic kidney disease, or end stage renal disease; T42.6X5A Adverse effect of other antiepileptic and sedative-hypnotic drugs, initial encounter; E11.22 Type 2 diabetes mellitus with diabetic chronic kidney disease; D64.9 Anemia, unspecified; E11.40 Type 2 diabetes mellitus with diabetic neuropathy, unspecified; I50.9 Heart failure, unspecified; Z86.73 Personal history of transient ischemic attack (TIA), and cerebral infarction without residual deficits; Z95.0 Presence of cardiac pacemaker; Z88.0 Allergy status to penicillin; Z99.2 Dependence on renal dialysis; Y92.89 Other specified places as the place of occurrence of the external cause
CPT/HCPCS: 36415; 71045; 80048; 82962; 83036; 84100; 84484; 85025; 90935; 93005; 99285; A4606; J1815; J2470; J7030